=== PATIENT | male | born 1955 | race Caucasian/White ===

== ENCOUNTER 2019-07-22 09:18 | Emergency (ER) | payer OTHER, BC, SELFPAY ==
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
[2019-07-22 09:19] VITALS: BP 172/101; PULSE 92; RESP 14; TEMP 36.4; O2SAT 97
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
--- NOTE | 2019-07-22 09:52 | PC.NURSE ---
Per EDP via verbal order readback, administer Boostrix over Adacel vaccine.
[2019-07-22] MEDS: TETANUS,DIPHTHERIA,AC PERTUSSIS ADULT (0.5 ML) BOOSTRIX (09:55)
[2019-07-22 10:46] VITALS: BP 168/89; PULSE 89; RESP 20; TEMP 36.2; O2SAT 96
== END 2019-07-22 10:50 | disposition home or self-care (01) ==
PROVIDERS: Emergency Provider Emergency Medicine
DX: S61.213A Laceration without foreign body of left middle finger without damage to nail, initial encounter (principal); Q79.60 Ehlers-Danlos syndrome, unspecified; I10 Essential (primary) hypertension; Z23 Encounter for immunization; V43.52XA Car driver injured in collision with other type car in traffic accident, initial encounter
CPT/HCPCS: 73140; 90471; 90715; 99283